=== PATIENT | male | born 1965 | race African-American/Black ===

== ENCOUNTER 2017-02-24 07:15 | Emergency (ER) | payer MEDICAID, OTHER ==
[~2017-02-24] VITALS: Ht 175.3 cm; Wt 95.3 kg
[2017-02-24 08:45] LABS: Basophils # (auto) 0 uL; Basophils % (auto) 0.7 % (0.0-2.0); Eosinophils # (auto) 0 uL; Eosinophils % (auto) 0.5 % (0.0-7.0); Hematocrit 45.7 % (41.0-53.0); Hemoglobin 15.6 g/dL (13.5-17.5); Lymphocytes # (auto) 1.4 uL; Lymphocytes % (auto) 19.4 % (10.0-50.0); Mean Corpuscular Hemoglobin 30.9 pg (28.0-32.0); Mean Corpuscular Hgb Conc. 34.2 g/dL (32.0-36.0); Mean Corpuscular Volume 90.3 fL (80.0-100.0); Monocytes # (auto) 0.6 uL; Monocytes % (auto) 8.4 % (0.0-12.0); Platelet Count (auto) 206 10^3/uL (140-450); Red Blood Cells 5.06 10^6/uL (4.5-5.90)
[2017-02-24 09:18] LABS: Alanine Aminotransferase 65 U/L (16-61); Albumin 3.9 g/dL (3.4-5.0); Alkaline Phosphatase 113 U/L (45-117); Anion Gap 9 (5-15); Aspartate Aminotransferase 37 U/L (15-37); Bilirubin, Total 1.2 mg/dL (0.2-1.0); Blood Urea Nitrogen 14 mg/dL (7-18); Calcium 8.5 mg/dL (8.5-10.1); Carbon Dioxide 26 mmol/L (21-32); Chloride 100 mmol/L (98-107); GFR African American 85 mL/min; GFR Non-African American 70 mL/min; Glucose 84 mg/dL (74-106); Potassium 3.5 mmol/L (3.5-5.1); Sodium 135 mmol/L (136-145); Total Protein 7.8 g/dL (6.4-8.2)
[2017-02-24 12:17] VITALS: BP 117/82
== END 2017-02-24 12:26 | disposition home or self-care (01) ==
LOC: ER 07:15
DX: R55 Syncope and collapse (principal); R51 Headache
CPT/HCPCS: 36415; 80053; 84484; 85025; 93005; 94761